=== PATIENT | female | born 1965 | race African-American/Black ===

== ENCOUNTER 2019-07-23 18:33 | Emergency (ER) | payer SELFPAY ==
[~2019-07-23] VITALS: Ht 154.9 cm; Wt 45.0 kg
[2019-07-23 19:31] VITALS: BP 99/56
[2019-07-23 20:21] LABS: INFLUENZA A PATIENT NEGATIVE (NEGATIVE); INFLUENZA B PATIENT NEGATIVE (NEGATIVE)
[2019-07-23] MEDS ORDERED: AMOX500C PO (20:36)
[2019-07-23] MEDS ORDERED: PRED20TA PO (20:36)
[2019-07-23] MEDS ORDERED: ALBU2.5V8 INH (20:36)
--- NOTE | 2019-07-23 20:36 | PHYS DOC ---
Past Medical History Past Medical History: COPD Past Surgical History: No Surgical History Smoking Status: Current Every Day Smoker Alcohol Use: Rarely Drug Use: None Adult General Chief Complaint Chief Complaint: FLU SYMPTOM HPI HPI Patient is a 54 year old Female who presents with 2 days of cough, body aches, fever and shortness of breath. Patient states she does have COPD and she is a smoker. She states she has not taken anything for symptoms. Review of Systems Review of Systems Constitutional: fever or chills [] HENT: nasal congestion or sore throat [] Respiratory: cough or shortness of breath [] Musculoskeletal: Bodyaches. Denies back pain or joint pain [] All other systems were reviewed and found to be within normal limits, except as documented in this note. Allergies Allergies Allergies Coded Allergies Type Severity Reaction Last Updated Verified No Known Drug Allergies 11/08/13 No Physical Exam Physical Exam Constitutional: Well developed, well nourished, no acute distress, non-toxic appearance. [] HENT: Normocephalic, atraumatic, bilateral external ears normal, oropharynx moist, no oral exudates, nose normal. [] Eyes: PERRLA, EOMI, conjunctiva normal, no discharge. [] Neck: Normal range of motion, no tenderness, supple, no stridor. [] Cardiovascular:Heart rate regular rhythm, no murmur [] Lungs & Thorax: Bilateral breath sounds clear to auscultation [] Abdomen: Bowel sounds normal, soft, no tenderness, no masses, no pulsatile masses. [] Skin: Warm, dry, no erythema, no rash. [] Back: No tenderness, no CVA tenderness. [] Extremities: No tenderness, no cyanosis, no clubbing, ROM intact, no edema. [] Neurologic: Alert and oriented X 3, normal motor function, normal sensory function, no focal deficits noted. [] Psychologic: Affect normal, judgement normal, mood normal. Normal Physical Exam[] Current Patient Data Vital Signs Vital Signs Date Time Temp Pulse Resp B/P (MAP) Pulse Ox O2 Delivery O2 Flow Rate FiO2 07/23/19 19:31 99.2 88 22 99/56 (70) 96 Room Air 99.2 Lab Values Laboratory Tests Test 07/23/19 19:55 Influenza Type A Antigen Negative (NEGATIVE) Influenza Type B Antigen Negative (NEGATIVE) EKG EKG [] Radiology/Procedures Radiology/Procedures [] Course & Med Decision Making Course & Med Decision Making Pertinent Labs and Imaging studies reviewed. (See chart for details) Vital signs within normal limits. Alert and oriented. Ambulatory with a steady gait. Speaks in full clear sentences. No respiratory distress. Lungs are clear to auscultation all lobes. Throat is pink without exudates. Bilateral tympanic is white. Normal physical exam. No extremity swelling. Patient given prednisone in the ER and given a prescription for prednisone and inhaler. Patient follow-up with primary care provider. Influenza negative. [] Dragon Disclaimer Dragon Disclaimer This electronic medical record was generated, in whole or in part, using a voice recognition dictation system. Departure Departure Impression: Primary Impression: Cough Additional Impressions: Fever Body aches Disposition: HOME, SELF-CARE Condition: STABLE Referrals: NON,STAFF (PCP) Patient Instructions: Cough, Adult, Fever, Adult, [id number] Additional Instructions: Follow-up with primary care provider. Take medications as prescribed. Scripts Albuterol Sulfate (PROAIR HFA INHALER) 8.5 Gm Hfa.aer.ad 1 PUFF INH PRN Q6HRS PRN for SHORTNESS OF BREATH, #1 INHALER 0 Refills Prov: CALLI PEREIRA [employer] 07/23/19 Prednisone (PREDNISONE) 20 Mg Tablet 1 TAB PO BID for 5 Days, #10 TAB Prov: CALLI PEREIRA [employer] 07/23/19 Amoxicillin (AMOXICILLIN) 500 Mg Capsule 1 CAP PO BID, #20 CAP Prov: CALLI PEREIRA [employer] 07/23/19 Problem Qualifiers Additional Impressions: Fever Fever type: unspecified Qualified Codes: R50.9 - Fever, unspecified CALLI PEREIRA [employer] Jul 23, 2019 20:36
== END 2019-07-23 20:46 | disposition home or self-care (01) ==
LOC: ER 18:33
DX: R05 Cough (principal); R50.9 Fever, unspecified; M79.10 Myalgia, unspecified site; R06.02 Shortness of breath; J44.9 Chronic obstructive pulmonary disease, unspecified; F17.200 Nicotine dependence, unspecified, uncomplicated
CPT/HCPCS: 87804; 99283

== ENCOUNTER → 2020-11-03 | Outpatient (CLI) | payer OTHER ==
[~2020-11-03] MED LIST: ALBU2.5V8 INH; AMOX500C PO; PRED20TA PO
--- NOTE | 2020-11-03 10:40 | RAD ---
EXAM: Lumbar spine, 2 views. HISTORY: Pain. COMPARISON: None. FINDINGS: 2 views of the lumbar spine are obtained. There is grade 1 anterolisthesis of L3 on L4, elsi suring 3 mm. There is 2 mm retrolisthesis of L4 and L5. There is degenerative endplate remodeling suzanne jeimy at L3-L4. There is facet arthropathy predominantly at the lumbosacral junction. There is no fr acture. 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 IMPRESSION: 1. Degenerative change primarily at the mid lower lumbar levels. 2. No acute osseous finding. Electronically signed by: Theresa Lobato MD (11/03/2020 10:38 AM) [id number]
--- NOTE | 2020-11-03 10:42 | RAD ---
EXAM: Chest, 2 views. HISTORY: COPD. Back pain. COMPARISON: None. FINDINGS: 2 views of the chest are obtained. There is no infiltrate, pleural effusion or pneumothorax . The heart is normal in size. IMPRESSION: No acute pulmonary finding. Electronically signed by: Theresa Lobato MD (11/03/2020 10:39 AM) [id number]
== END ==
LOC: RAD 09:26
PROVIDERS: ATTEND Anesthesiology Pain Medicine
DX: M47.816 Spondylosis without myelopathy or radiculopathy, lumbar region (principal); J44.9 Chronic obstructive pulmonary disease, unspecified
CPT/HCPCS: 71046; 72100